=== PATIENT | male | born 1935 | race Caucasian/White ===

== ENCOUNTER 2019-04-16 20:54 | Emergency (ER) | payer MEDICARE, MEDICAID ==
--- NOTE | 2019-04-16 21:13 | EDM.PDOC ---
ED HPI GENERAL MEDICAL PROBLEM - General Chief Complaint: Lower Extremity Injury/Pain Stated Complaint: Right Hip/Leg Pain Time Seen by Provider: 04/16/19 21:07 Source of Information: Reports: Patient, EMS Notes Reviewed, RN, RN Notes Reviewed History Limitations: Reports: No Limitations - History of Present Illness INITIAL COMMENTS - FREE TEXT/NARRATIVE: Patient is brought to the ED at [facility] via EMS after he fell at home. Patient states he fell around 4pm this afternoon but did not call 911 until around 8:30pm. Patient was found laying on the floor by EMS. He complained of right leg pain upon their arrival. Patient was put into a traction splint for comfort. Patient was given IV Dilaudid prior to arrival. Upon arrival to ER, patient states he was is feeling comfortable. He complains of minor pain to the upper right leg. Denies any numbness, tingling, or paresthesia to the RLE. Patient has not seen his PCP in 2 years. He was taking Levothyroxine, but did not get his pills refilled. Onset: Today Onset Date: 04/16/19 Onset Time: 16:00 Right upper thigh/hip Pain Score (Numeric/FACES): 3 - Related Data Allergies Allergy/AdvReac Type Severity Reaction Status Date / Time No Known Allergies Allergy Verified 04/16/19 21:31 Home Meds: Home Meds . [No Known Home Meds] 04/16/19 [History] Past Medical History - Past Health History Medical/Surgical History: Denies Medical/Surgical History HEENT History: Reports: Impaired Vision, Other (See Below) Other HEENT History: legally blind Cardiovascular History: Reports: Other (See Below) Other Cardiovascular History: hypotension Endocrine/Metabolic History: Reports: Hypothyroidism - Past Surgical History HEENT Surgical History: Reports: Eye Surgery Review of Systems - Review of Systems Review Of Systems: See Below Constitutional: Denies: Chills, Fever Respiratory: Denies: Shortness of Breath, Cough Cardiovascular: Denies: Chest Pain, Palpitations Musculoskeletal: Reports: Leg Pain Skin: Reports: No Symptoms Neurological: Reports: No Symptoms ED EXAM, GENERAL - Physical Exam Exam: See Below Exam Limited By: No Limitations General Appearance: Alert, No Apparent Distress Head: Atraumatic, Normocephalic Neck: Normal Inspection, Supple, Non-Tender Respiratory/Chest: No Respiratory Distress, Lungs Clear, Normal Breath Sounds Cardiovascular: Normal Peripheral Pulses, Regular Rate, Rhythm Peripheral Pulses: 1+: Posterior Tibial (L), Posterior Tibial (R), Dorsalis Pedis (L), Dorsalis Pedis (R) Back Exam: Normal Inspection Extremities: No Pedal Edema, Leg Pain, Limited Range of Motion, Increased Warmth Neurological: Alert, Oriented Course - Vital Signs Last Recorded V/S: Last Vital Signs Temp 96.4 F 04/16/19 20:55 Pulse 88 04/16/19 20:55 Resp 16 04/16/19 20:55 BP 141/84 H 04/16/19 20:55 Pulse Ox 95 04/16/19 20:55 - Orders/Labs/Meds Orders: Active Orders 24 hr Category Date Time Status Hip Min 1V Rt [CR] Stat Exams 04/16/19 21:07 Taken COMPREHENSIVE METABOLIC PN,CMP [CHEM] Stat Lab 04/16/19 21:52 Received CREATINE KINASE,CK [CHEM] Stat Lab 04/16/19 21:52 Received INR,PT,PROTHROMBIN TIME [COAG] Stat Lab 04/16/19 21:52 Received Labs: Laboratory Tests 04/16/19 Range/Units 21:52 WBC 16.0 H (4.0-10.0) x10^3/uL RBC 4.27 L (4.5-6.0) x10^6/uL Hgb 13.5 L D (14.0-18.0) g/dL Hct 40.5 (40.0-52.0) % MCV 94.8 H D (78.0-93.0) fL MCH 31.6 (26.0-32.0) pg MCHC 33.3 (32.0-36.0) g/dL RDW Coeff of Alejandro 13.7 (10.0-15.0) % Plt Count 195 (130-400) x10^3/uL Neut % (Auto) 92.9 H (50.0-80.0) % Lymph % (Auto) 3.3 L (25.0-50.0) % [place] % (Auto) 3.7 (2.0-11.0) % Eos % (Auto) 0.0 (0.0-4.0) % Baso % (Auto) 0.1 L (0.2-1.2) % Departure - Departure Time of Disposition: 22:20 Disposition: DC/Tfer to Acute Hospital 02 Condition: Fair Clinical Impression: Femur fracture, right Qualifiers: Encounter type: initial encounter Femur location: unspecified portion of femur Fracture type: closed Fracture morphology: unspecified fracture morphology Qualified Code(s): S72.91XA - Unspecified fracture of right femur, initial encounter for closed fracture - Discharge Information *PRESCRIPTION DRUG MONITORING PROGRAM REVIEWED*: Not Applicable *COPY OF PRESCRIPTION DRUG MONITORING REPORT IN PATIENT KARY: Not Applicable Forms: Interfacility Transfer EMTALA ED Communication - ED Communication Date/Time Date: 04/16/19 Time Called: 22:20 - Discussed Case With (1) Discussed Case With (1): Admitting Provider (Dr. Ramos, [facility]) - Conversation Summary Admitting Provider Agreed to Patient's Admission: Yes Patient Aware of Amendments fo Care Plan: Yes - Problem List Review Problem List Initiated/Reviewed/Updated: Yes - My Orders Last 24 Hours: My Active Orders 04/16/19 21:07 Hip Min 1V Rt [CR] Stat 04/16/19 21:52 COMPREHENSIVE METABOLIC PN,CMP [CHEM] Stat CREATINE KINASE,CK [CHEM] Stat INR,PT,PROTHROMBIN TIME [COAG] Stat - Assessment/Plan Last 24 Hours: My Active Orders 04/16/19 21:07 Hip Min 1V Rt [CR] Stat 04/16/19 21:52 COMPREHENSIVE METABOLIC PN,CMP [CHEM] Stat CREATINE KINASE,CK [CHEM] Stat INR,PT,PROTHROMBIN TIME [COAG] Stat Assessment:: Displaced, distracted oblique fracture of the proximal right femur. Plan: Case discussed with Dr. Ramos [facility]. Patient will be sent to [place] via BLS. Discussed treatment options with patient and he agrees to surgery at this time. Patient signed out to Dr. Ramos.
[2019-04-16 22:17] LABS: CHLORIDE,CL 102 mmol/L (98-107); SODIUM,NA 140 mmol/L (136-145)
[2019-04-16 22:18] LABS: ANION GAP 15.8 mmol/L (10-20)
[2019-04-16] MEDS ORDERED: Morphine 2 MG/ML Syringe IVPUSH ONE ×2 (22:35→22:57)
[2019-04-16] MEDS ORDERED: Sodium Chloride 0.9% 1,000 ML IV ONE (22:35)
[2019-04-16 23:09] VITALS: BP 131/72; PULSE 69
--- NOTE | 2019-04-17 08:12 | CR ---
[id number] RAD/RAD Hip Right 1V EXAM: RAD Hip Right 1V CLINICAL DATA: TRAUMA COMPARISON: NO PREVIOUS SIMILAR EXAM IS AVAILABLE. FINDINGS: A single view of the proximal right femur was obtained portably. There is an oblique proximal right femoral diaphyseal fracture with medial displacement of the distal fracture fragment. The fracture may be pathologic.. IMPRESSION: DISPLACED PROXIMAL RIGHT FEMORAL FRACTURE. QUESTION OF UNDERLYING PATHOLOGIC ETIOLOGY. Esdras Rick MD 04/17/19 0811 Thank you for allowing us to participate in the care of your patient.
== END 2019-04-16 23:15 | disposition short-term general hospital (02) ==
LOC: VM.ED 20:54
DX: S72.001A Fracture of unspecified part of neck of right femur, initial encounter for closed fracture (principal); W18.39XA Other fall on same level, initial encounter; Y92.009 Unspecified place in unspecified non-institutional (private) residence as the place of occurrence of the external cause
CPT/HCPCS: 36415; 73501; 80053; 82550; 85025; 85610; 96374; 99283; 99285; J2270; J7030

== ENCOUNTER 2019-04-20 10:19 | Inpatient (IN) | payer MEDICARE, MEDICAID ==
[2019-04-20] MEDS ORDERED: oxyCODONE 5 MG Tab PO PRN (16:26)
[2019-04-20] MEDS ORDERED: Bisacodyl 10 MG Supp RECTAL PRN (16:28)
[2019-04-20] MEDS ORDERED: Bisacodyl 5 MG Tab PO PRN (16:28)
[2019-04-20] MEDS ORDERED: Magnesium Hydroxide 400 MG/5 ML Susp 30 ML Cup PO PRN (16:29)
[2019-04-20] MEDS ORDERED: Ondansetron 4 MG Tab.DIS PO PRN (16:29)
[2019-04-20] MEDS ORDERED: Non-Formulary Medication 1 Each (Melatonin/Pyridoxine Hcl (B6) [Melatonin 3 Mg Tablet] 3 M PO PRN (16:29)
[2019-04-20] MEDS ORDERED: Acetaminophen 325 MG Tab PO SCH (16:30)
[2019-04-20] MEDS: Acetaminophen 325 MG Tab PO SCH (18:12)
[2019-04-20] MEDS: Calcium Carbonate 750 MG Tab.Chew PO PRN (19:08)
[2019-04-20] MEDS ORDERED: Non-Formulary Medication 1 Each (Magnesium Oxide [Magnesium Oxide] 500 MG) PO SCH (20:00)
[2019-04-20] MEDS: Potassium Phosphate,Mb-Db/Sodium Phosphate,Mb-Db Packet PO SCH (20:22)
[2019-04-20] MEDS: Celecoxib 100 MG Cap PO SCH (20:22)
[2019-04-20] MEDS: Magnesium Oxide 400 MG Tab PO SCH (20:22)
[2019-04-20] MEDS: Polyethylene Glycol 3350 Powder 17 GM Packet PO SCH (20:23)
--- NOTE | 2019-04-20 20:43 | PCM.HP.2 ---
H&P History of Present Illness - General Date of Service: 04/20/19 Admit Problem/Dx: Admission Diagnosis/Problem Admission Diagnosis/Problem Fracture of femur - History of Present Illness Initial Comments - Free Text/Narative: CC: Recovering from R hip nailing HPI: 83-year-old man who lives in the house in [place] where he was born, has had almost no medical care throughout his life. He is almost completely blind, when he goes out he uses a white cane but has not been going out much lately, a friend delivers things to his house. He was sitting on a swivel chair in his home on 04/17, fell out of the chair onto the floor and suffered a subtrochanteric Fx of his R hip, somehow lay on the floor about 4 hours before he was able to call for help. Ambulance brought him to Hospital, [facility] where he had nailing procedure under spinal anesthesia, which he tolerated well and he has done well since. He did have a drop in Hb, has also been found to have Fe deficiency anemia. Now back to Swing Bed at [facility], will not consider going to assisted afterwards, plans to go home again when he has completed PT and rehab. He does not think he has been taking pain medications except Tylenol but there is oxycodone 5 mg p.r.n. on his Med List. 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 He wishes Code Level 1. Has enough vision that he can manipulate his trips downtown but he carries a white cane. Lived with his brother who in their home in . 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 -Cardiac: No chest pain or heart irregularity, BP has been OK lately, sometimes a bit low when he was having problems with syncope -GI: Has never had colon screening, his response to Fam Hx of colon cancer was to avoid eating meat, he is a lacto ovovegetarian. -Musculoskeletal: A little stiffness in his L arm, otherwise his joints dont bother him, until he got this R hip Fx -Endocrine: Hasnt been taking his levothyroxine for a couple years and his TSH was normal, but he has been restarted on levothyroxine because of his Hx; he takes 5000 units of D3 on his own -Genitourinary: Voiding is mildly slowed now -Skin: No Hx of skin cancer -Heme: Discovered on this hospitalization to have Fe deficiency anemia, Hb went down from about 11.5 down to 8.9 -Neuro: Only rarely gets syncope now -Psych: Never had depression or other mood disorder Physical Exam: -General: Alert and lucid, vital signs OK -Eyes: L pupil reacts OK, dense corneal opacity R -ENT: Tongue normal, teeth in very poor condition especially above -Neck: No thyroid enlargement or masses or bruit -Lungs: Clear, no dyspnea -Cardiac: Heart sounds normal and regular; trace ankle edema, palpable dorsalis pedis pulses bilateral -Abdomen: Soft, nontender, no organomegaly or masses -: HALEIGH not done -Extremities: Dressing over his R hip wound and only mild edema surrounding it, mild redness also; mild thickening of knees, lacks 5 of full extension; mild bunion deformity L -Skin: Hyperkeratosis on his feet and toenails very long and deformed -Neuro: Alert and lucid, facial muscles symmetric; memory OK -Psych: Affect normal Impression: -R subtrochanteric hip fracture from fall, Rx hip nailing and allowed weightbearing as tolerated with walker -Mild Hx of syncope along with mild elevation of TSH, so he is back on Synthroid 25 g daily -Blindness of R eye, nearblindness L -Never any preventative care or colon screening, at age 83 no reason to start now -Needs toenail care Plan: -Swing bed until recovered enough to go home -Code level1 per his request -Continue the Synthroid 25 g daily - Related Data Allergies/Adverse Reactions: Allergies Allergy/AdvReac Type Severity Reaction Status Date / Time No Known Allergies Allergy Verified 04/16/19 21:31 Home Medications: Home Meds Acetaminophen [Tylenol] 650 mg PO Q6H 04/20/19 [History] Bisacodyl 1 tab PO BID PRN 04/20/19 [History] Bisacodyl [Dulcolax] 10 mg RECTAL DAILY PRN 04/20/19 [History] Calcium Carbonate [Calcium] 1 tab PO QID PRN 04/20/19 [History] Celecoxib 200 mg PO BID 04/20/19 [History] Docusate Sodium/Sennosides [Senokot-S] 2 tab PO BID 04/20/19 [History] Enoxaparin [Lovenox] 40 mg INJECT DAILY 04/20/19 [History] Levothyroxine 1 tab PO DAILY 04/20/19 [History] Magnesium Hydroxide [Milk of Magnesia] 30 ml PO BID PRN 04/20/19 [History] Magnesium Oxide 500 mg PO BID 04/20/19 [History] Melatonin/Pyridoxine HCl (B6) [Melatonin 3 mg Tablet] 3 mg PO BEDTIME PRN [History] NaPh,Mb-Db/K Ph,MB-DB [Phos-NaK Powder] 1 packet PO BID 04/20/19 [History] Ondansetron HCl/PF [Ondansetron HCl 4 mg/2 ml Syr] 4 mg IV Q4HR PRN 04/20/19 [ History] Ondansetron [Ondansetron ODT] 4 mg PO Q4HR PRN 04/20/19 [History] Polyethylene Glycol 3350 [MiraLAX] 1 packet PO BID 04/20/19 [History] oxyCODONE 5 - 10 mg PO Q4HR PRN 04/20/19 [History] Past Medical History - Past Health History Medical/Surgical History: Denies Medical/Surgical History HEENT History: Reports: Impaired Vision, Other (See Below) Other HEENT History: legally blind Cardiovascular History: Reports: Other (See Below) Other Cardiovascular History: hypotension Gastrointestinal History: Reports: GERD Genitourinary History: Reports: None Musculoskeletal History: Reports: Fracture Other Musculoskeletal History: right femoral fracture Endocrine/Metabolic History: Reports: Hypothyroidism - Past Surgical History HEENT Surgical History: Reports: Eye Surgery Social & Family History - Tobacco Use Smoking Status *Q: Never Smoker - Caffeine Use Caffeine Use: Reports: Coffee - Recreational Drug Use Recreational Drug Use: No H&P Review of Systems - Review of Systems: Review Of Systems: See Below Exam - Exam Exam: See Below - Vital Signs Vital Signs: Last Vital Signs Temp 37.0 C 04/20/19 18:00 Pulse 68 04/20/19 18:00 Resp BP 133/79 04/20/19 18:00 Pulse Ox 99 04/20/19 18:00 Weight: 61.689 kg Problem List Initiated/Reviewed/Updated: Yes Orders Last 24hrs: Active Orders 24 hr Category Date Time Status Admission Status [Patient Status] [ADT] Routine ADT 04/20/19 12:02 Active Patient Status [ADT] Routine ADT 04/20/19 16:25 Active Oxygen Therapy [RC] .PRN Care 04/20/19 16:25 Active Vital Signs [RC] 06,18 Care 04/20/19 16:25 Active OT Evaluation and Treatment [CONS] Routine Cons 04/20/19 11:05 Active PT Evaluation and Treatment [CONS] Routine Cons 04/20/19 11:05 Active Regular Diet [DIET] Diet 04/20/19 Lunch Active Acetaminophen [Tylenol] Med 04/20/19 18:00 Active 650 mg PO Q6H Bisacodyl [Dulcolax] Med 04/20/19 16:28 Active 10 mg RECTAL DAILY PRN Bisacodyl [Dulcolax] Med 04/20/19 16:28 Active 5 mg PO BID PRN Calcium Carbonate [Tums Extra Strength] Med 04/20/19 16:45 Active 750 mg PO QID PRN Celecoxib [CeleBREX] Med 04/20/19 20:00 Active 200 mg PO BID Docusate Sodium/Sennosides [Senna Plus] Med 04/20/19 20:00 Active 2 tab PO BID Enoxaparin [Lovenox] Med 04/21/19 08:00 Active 40 mg SUBCUT DAILY Levothyroxine Med 04/21/19 07:00 Active 25 mcg PO DAILY@0700 Magnesium Hydroxide [Milk of Magnesia] Med 04/20/19 16:29 Active 30 ml PO BID PRN Magnesium Oxide Med 04/20/19 20:00 Active 400 mg PO BID Melatonin Med 04/20/19 20:00 Active 3 mg PO BEDTIME PRN NaPh,Mb-Db/K Ph,MB-DB [Phos-NaK Powder] Med 04/20/19 20:00 Active 1 each PO BID Ondansetron [Zofran ODT] Med 04/20/19 16:29 Active 4 mg PO Q4HR PRN Polyethylene Glycol 3350 [MiraLAX] Med 04/20/19 20:00 Active 17 gm PO BID oxyCODONE Med 04/20/19 16:26 Active 5 mg PO Q4H PRN Weight bearing status [OM.PC] Routine Oth 04/20/19 11:25 Active Code Status [Resuscitation Status] Routine Resus Stat 04/20/19 11:25 Ordered Medication Orders Acetaminophen (Tylenol) 650 mg PO Q6H REPLACED BY [facility] Last Admin: 04/20/19 18:12 Dose: 650 mg Bisacodyl (Dulcolax) 5 mg PO BID PRN PRN Reason: Constipation Bisacodyl (Dulcolax) 10 mg RECTAL DAILY PRN PRN Reason: Constipation Calcium Carbonate/Glycine (Tums Extra Strength) 750 mg PO QID PRN PRN Reason: HEARTBURN Last Admin: 04/20/19 19:08 Dose: 750 mg Celecoxib (Celebrex) 200 mg PO BID REPLACED BY [facility] Last Admin: 04/20/19 20:22 Dose: 200 mg Enoxaparin Sodium (Lovenox) 40 mg SUBCUT DAILY REPLACED BY [facility] Stop: 05/04/19 08:00 Levothyroxine Sodium (Levothyroxine) 25 mcg PO DAILY@0700 REPLACED BY [facility] Magnesium Hydroxide (Milk Of Magnesia) 30 ml PO BID PRN PRN Reason: Constipation Magnesium Oxide (Magnesium Oxide) 400 mg PO BID REPLACED BY [facility] Last Admin: 04/20/19 20:22 Dose: 400 mg Melatonin (Melatonin) 3 mg PO BEDTIME PRN PRN Reason: Insomnia Ondansetron HCl (Zofran Odt) 4 mg PO Q4HR PRN PRN Reason: Nausea/Vomiting Oxycodone HCl (Oxycodone) 5 mg PO Q4H PRN PRN Reason: Pain Polyethylene Glycol (Miralax) 17 gm PO BID REPLACED BY [facility] Last Admin: 04/20/19 20:23 Dose: 17 gm Potassium Phos/Sodium Phos (Phos-Nak Powder) 1 each PO BID REPLACED BY [facility] Last Admin: 04/20/19 20:22 Dose: 1 each Senna/Docusate Sodium (Senna Plus) 2 tab PO BID REPLACED BY [facility] Last Admin: 04/20/19 20:32 Dose: Not Given
[2019-04-21] MEDS: Acetaminophen 325 MG Tab PO SCH ×4 (00:09→17:58)
[2019-04-21] MEDS: Levothyroxine 25 MCG Tab PO SCH ×3 (05:48→06:57)
[2019-04-21] MEDS ORDERED: Levothyroxine 25 MCG Tab PO SCH (08:00)
[2019-04-21] MEDS: Polyethylene Glycol 3350 Powder 17 GM Packet PO SCH ×2 (08:45→20:03)
[2019-04-21] MEDS: Magnesium Oxide 400 MG Tab PO SCH ×2 (08:45→20:04)
[2019-04-21] MEDS: Potassium Phosphate,Mb-Db/Sodium Phosphate,Mb-Db Packet PO SCH ×2 (08:45→20:04)
[2019-04-21] MEDS: Celecoxib 100 MG Cap PO SCH ×2 (08:46→20:01)
[2019-04-21] MEDS: Enoxaparin 40 MG/0.4 ML Syringe SUBCUT SCH (08:46)
[2019-04-21] MEDS: Calcium Carbonate 750 MG Tab.Chew PO PRN (20:45)
[2019-04-22] MEDS: Acetaminophen 325 MG Tab PO SCH ×4 (00:44→17:37)
[2019-04-22] MEDS: Levothyroxine 25 MCG Tab PO SCH (06:20)
[2019-04-22] MEDS: Celecoxib 100 MG Cap PO SCH ×2 (08:29→20:08)
[2019-04-22] MEDS: Magnesium Oxide 400 MG Tab PO SCH ×2 (08:30→20:09)
[2019-04-22] MEDS: Potassium Phosphate,Mb-Db/Sodium Phosphate,Mb-Db Packet PO SCH ×2 (08:30→20:09)
[2019-04-22] MEDS: Enoxaparin 40 MG/0.4 ML Syringe SUBCUT SCH (08:30)
[2019-04-22] MEDS: Polyethylene Glycol 3350 Powder 17 GM Packet PO SCH ×2 (08:30→20:10)
[2019-04-23] MEDS: Acetaminophen 325 MG Tab PO SCH ×4 (00:31→18:25)
[2019-04-23] MEDS: Levothyroxine 25 MCG Tab PO SCH (06:12)
[2019-04-23] MEDS: Potassium Phosphate,Mb-Db/Sodium Phosphate,Mb-Db Packet PO SCH ×2 (07:56→21:36)
[2019-04-23] MEDS: Polyethylene Glycol 3350 Powder 17 GM Packet PO SCH ×2 (07:56→21:37)
[2019-04-23] MEDS: Celecoxib 100 MG Cap PO SCH ×2 (07:56→21:36)
[2019-04-23] MEDS: Enoxaparin 40 MG/0.4 ML Syringe SUBCUT SCH (07:56)
[2019-04-23] MEDS: Magnesium Oxide 400 MG Tab PO SCH ×2 (07:56→21:36)
[2019-04-23 11:27] LABS: CHLORIDE,CL 103 mmol/L (98-107); SODIUM,NA 140 mmol/L (136-145)
[2019-04-23 11:29] LABS: ANION GAP 12.1 mmol/L (10-20)
[2019-04-24] MEDS: Acetaminophen 325 MG Tab PO SCH ×5 (00:48→22:59)
[2019-04-24] MEDS: Levothyroxine 25 MCG Tab PO SCH (06:26)
[2019-04-24] MEDS: Potassium Phosphate,Mb-Db/Sodium Phosphate,Mb-Db Packet PO SCH ×2 (09:04→20:12)
[2019-04-24] MEDS: Enoxaparin 40 MG/0.4 ML Syringe SUBCUT SCH (09:04)
[2019-04-24] MEDS: Magnesium Oxide 400 MG Tab PO SCH ×2 (09:04→20:11)
[2019-04-24] MEDS: Celecoxib 100 MG Cap PO SCH ×2 (09:04→20:12)
[2019-04-24] MEDS: Polyethylene Glycol 3350 Powder 17 GM Packet PO SCH ×2 (09:07→20:11)
[2019-04-24] MEDS: Sulfamethoxazole/Trimethoprim 400-80 MG Tab PO SCH ×2 (11:07→20:12)
--- NOTE | 2019-04-24 11:16 | PCM.PN ---
- General Info Date of Service: 04/24/19 Admission Dx/Problem (Free Text): History: Progressing well in PT, 2 wounds over R hip are stapled, very slight amount of serous drainage from one of them. 2 days ago he had some cloudiness in his urine and though he denies any dysuria a urine culture was done which shows both gram-negative and gram-positive bacteria, the gram-negative is E. coli 100 K, sensitive to everything. Exam: -Wounds are clear, stapled -Alert, cheerful Impression: -Positive urine culture, equivocal symptoms -Hip wound doing well -PT going OK Plan: -Bactrim SS BID 5 days -Continue PT -Follow previous schedule for removing elgin and Ortho F/U - Patient Data Vitals - Most Recent: Last Vital Signs Temp 37.0 C 04/24/19 05:28 Pulse 86 04/24/19 05:28 Resp 18 04/24/19 05:28 BP 138/74 04/24/19 05:28 Pulse Ox 97 04/24/19 05:28 Weight - Most Recent: 61.689 kg I&O - Last 24 Hours: Intake & Output 04/23/19 04/24/19 04/24/19 22:59 06:59 14:59 Intake Total 600 240 Balance 600 240 Lab Results Last 24 Hours: Laboratory Results - last 24 hr 04/23/19 04/23/19 Range/Units 11:05 11:05 WBC 7.5 (4.0-10.0) x10^3/uL RBC 2.39 L (4.5-6.0) x10^6/uL Hgb 7.7 L D (14.0-18.0) g/dL Hct 23.4 L (40.0-52.0) % MCV 97.9 H D (78.0-93.0) fL MCH 32.2 H (26.0-32.0) pg MCHC 32.9 (32.0-36.0) g/dL RDW Coeff of Alejandro 14.8 (10.0-15.0) % Plt Count 287 D (130-400) x10^3/uL Sodium 140 (136-145) mmol/L Potassium 4.1 (3.5-5.1) mmol/L Chloride 103 (98-107) mmol/L Carbon Dioxide 29 (21-32) mmol/L Anion Gap 12.1 (10-20) mmol/L BUN 17 (7-18) mg/dL Creatinine 0.7 (0.70-1.30) mg/dL Est Cr Clr Drug Dosing 70.99 mL/min Estimated GFR (MDRD) > 60 Glucose 113 H (74-106) mg/dL Calcium 8.8 (8.5-10.1) mg/dL Steven Results Last 24 Hours: Microbiology 04/22/19 10:02 Urine Culture - Preliminary Urine, Clean Catch Escherichia Coli Gram Positive Isolate Med Orders - Current: Current Medications Acetaminophen (Tylenol) 650 mg PO Q6H [facility] Last Admin: 04/24/19 11:07 Dose: 650 mg Bisacodyl (Dulcolax) 5 mg PO BID PRN PRN Reason: Constipation Bisacodyl (Dulcolax) 10 mg RECTAL DAILY PRN PRN Reason: Constipation Calcium Carbonate/Glycine (Tums Extra Strength) 750 mg PO QID PRN PRN Reason: HEARTBURN Last Admin: 04/21/19 20:45 Dose: 750 mg Celecoxib (Celebrex) 200 mg PO BID [facility] Last Admin: 04/24/19 09:04 Dose: 200 mg Enoxaparin Sodium (Lovenox) 40 mg SUBCUT DAILY [facility] Stop: 05/04/19 08:00 Last Admin: 04/24/19 09:04 Dose: 40 mg Levothyroxine Sodium (Levothyroxine) 25 mcg PO DAILY@0700 [facility] Last Admin: 04/24/19 06:26 Dose: 25 mcg Magnesium Hydroxide (Milk Of Magnesia) 30 ml PO BID PRN PRN Reason: Constipation Magnesium Oxide (Magnesium Oxide) 400 mg PO BID [facility] Last Admin: 04/24/19 09:04 Dose: 400 mg Melatonin (Melatonin) 3 mg PO BEDTIME PRN PRN Reason: Insomnia Ondansetron HCl (Zofran Odt) 4 mg PO Q4HR PRN PRN Reason: Nausea/Vomiting Oxycodone HCl (Oxycodone) 5 mg PO Q4H PRN PRN Reason: Pain Polyethylene Glycol (Miralax) 17 gm PO BID [facility] Last Admin: 04/24/19 09:07 Dose: Not Given Potassium Phos/Sodium Phos (Phos-Nak Powder) 1 each PO BID [facility] Last Admin: 04/24/19 09:04 Dose: 1 each Senna/Docusate Sodium (Senna Plus) 2 tab PO BID [facility] Last Admin: 04/24/19 09:04 Dose: 2 tab Trimethoprim/Sulfamethoxazole (Septra) 1 tab PO BID [facility] Stop: 04/28/19 20:01 Last Admin: 04/24/19 11:07 Dose: 1 tab Discontinued Medications Acetaminophen (Tylenol) 650 mg PO Q6H [facility] Last Admin: 04/20/19 20:57 Dose: Not Given Levothyroxine Sodium (Levothyroxine) 25 mcg PO DAILY [facility] Non-Formulary Medication (Magnesium Oxide [Magnesium Oxide]) 500 mg PO BID [facility] Non-Formulary Medication (Melatonin/Pyridoxine Hcl (B6) [Melatonin 3 Mg Tablet] ) 3 mg PO BEDTIME PRN PRN Reason: Insomnia - Problem List Review Problem List Initiated/Reviewed/Updated: Yes - My Orders Last 24 Hours: My Active Orders 04/24/19 10:54 Dietary Supplements [RC] BIDMEALS 04/24/19 11:00 Sulfamethoxazole/Trimethoprim [Septra] 1 tab PO BID
[2019-04-24] MEDS: Calcium Carbonate 750 MG Tab.Chew PO PRN (22:59)
[2019-04-25] MEDS: Melatonin 3 MG Tab PO PRN ×2 (03:49→19:41)
[2019-04-25] MEDS: Acetaminophen 325 MG Tab PO SCH ×3 (06:21→17:44)
[2019-04-25] MEDS: Calcium Carbonate 750 MG Tab.Chew PO PRN (06:21)
[2019-04-25] MEDS: Levothyroxine 25 MCG Tab PO SCH (06:21)
[2019-04-25] MEDS: Potassium Phosphate,Mb-Db/Sodium Phosphate,Mb-Db Packet PO SCH ×2 (07:51→19:41)
[2019-04-25] MEDS: Enoxaparin 40 MG/0.4 ML Syringe SUBCUT SCH (07:51)
[2019-04-25] MEDS: Sulfamethoxazole/Trimethoprim 400-80 MG Tab PO SCH ×2 (07:51→19:41)
[2019-04-25] MEDS: Celecoxib 100 MG Cap PO SCH ×2 (07:52→19:41)
[2019-04-25] MEDS: Magnesium Oxide 400 MG Tab PO SCH ×2 (07:52→19:41)
[2019-04-25] MEDS: Polyethylene Glycol 3350 Powder 17 GM Packet PO SCH ×2 (07:52→19:41)
[2019-04-26] MEDS: Acetaminophen 325 MG Tab PO SCH ×4 (00:11→17:15)
[2019-04-26] MEDS: Calcium Carbonate 750 MG Tab.Chew PO PRN (00:12)
[2019-04-26] MEDS: Levothyroxine 25 MCG Tab PO SCH (06:10)
[2019-04-26] MEDS: Polyethylene Glycol 3350 Powder 17 GM Packet PO SCH ×2 (08:03→19:42)
[2019-04-26] MEDS: Magnesium Oxide 400 MG Tab PO SCH ×2 (08:04→19:42)
[2019-04-26] MEDS: Celecoxib 100 MG Cap PO SCH ×2 (08:04→19:42)
[2019-04-26] MEDS: Sulfamethoxazole/Trimethoprim 400-80 MG Tab PO SCH ×2 (08:04→19:42)
[2019-04-26] MEDS: Potassium Phosphate,Mb-Db/Sodium Phosphate,Mb-Db Packet PO SCH ×2 (08:05→19:42)
[2019-04-26] MEDS: Enoxaparin 40 MG/0.4 ML Syringe SUBCUT SCH (08:05)
[2019-04-26] MEDS: Melatonin 3 MG Tab PO PRN (19:42)
[2019-04-27] MEDS: Calcium Carbonate 750 MG Tab.Chew PO PRN (01:05)
[2019-04-27] MEDS: Acetaminophen 325 MG Tab PO SCH ×4 (01:05→18:42)
[2019-04-27] MEDS: Levothyroxine 25 MCG Tab PO SCH (06:15)
[2019-04-27] MEDS: Polyethylene Glycol 3350 Powder 17 GM Packet PO SCH (09:05)
[2019-04-27] MEDS: Enoxaparin 40 MG/0.4 ML Syringe SUBCUT SCH (09:05)
[2019-04-27] MEDS: Magnesium Oxide 400 MG Tab PO SCH ×2 (09:06→21:33)
[2019-04-27] MEDS: Celecoxib 100 MG Cap PO SCH ×2 (09:06→21:33)
[2019-04-27] MEDS: Potassium Phosphate,Mb-Db/Sodium Phosphate,Mb-Db Packet PO SCH ×2 (09:06→21:35)
[2019-04-27] MEDS: Sulfamethoxazole/Trimethoprim 400-80 MG Tab PO SCH ×2 (09:06→21:32)
[2019-04-28] MEDS: Acetaminophen 325 MG Tab PO SCH ×4 (01:30→17:51)
[2019-04-28] MEDS: Polyethylene Glycol 3350 Powder 17 GM Packet PO SCH ×3 (01:31→19:51)
[2019-04-28] MEDS: Levothyroxine 25 MCG Tab PO SCH (06:31)
[2019-04-28] MEDS: Sulfamethoxazole/Trimethoprim 400-80 MG Tab PO SCH ×2 (08:35→19:47)
[2019-04-28] MEDS: Magnesium Oxide 400 MG Tab PO SCH ×2 (08:35→19:50)
[2019-04-28] MEDS: Enoxaparin 40 MG/0.4 ML Syringe SUBCUT SCH (08:35)
[2019-04-28] MEDS: Potassium Phosphate,Mb-Db/Sodium Phosphate,Mb-Db Packet PO SCH ×2 (08:35→19:47)
[2019-04-28] MEDS: Celecoxib 100 MG Cap PO SCH ×2 (08:36→19:44)
[2019-04-29] MEDS: Acetaminophen 325 MG Tab PO SCH ×4 (00:36→17:17)
[2019-04-29] MEDS: Calcium Carbonate 750 MG Tab.Chew PO PRN (00:41)
[2019-04-29] MEDS: Levothyroxine 25 MCG Tab PO SCH (06:18)
[2019-04-29] MEDS: Polyethylene Glycol 3350 Powder 17 GM Packet PO SCH ×2 (07:53→20:18)
[2019-04-29] MEDS: Enoxaparin 40 MG/0.4 ML Syringe SUBCUT SCH (07:54)
[2019-04-29] MEDS: Magnesium Oxide 400 MG Tab PO SCH ×2 (07:54→20:16)
[2019-04-29] MEDS: Potassium Phosphate,Mb-Db/Sodium Phosphate,Mb-Db Packet PO SCH ×2 (07:54→20:17)
[2019-04-29] MEDS: Celecoxib 100 MG Cap PO SCH ×2 (09:27→20:16)
[2019-04-30] MEDS: Acetaminophen 325 MG Tab PO SCH ×5 (00:15→23:55)
[2019-04-30] MEDS: Levothyroxine 25 MCG Tab PO SCH (06:09)
[2019-04-30] MEDS: Potassium Phosphate,Mb-Db/Sodium Phosphate,Mb-Db Packet PO SCH ×2 (09:23→19:37)
[2019-04-30] MEDS: Celecoxib 100 MG Cap PO SCH ×2 (09:23→19:37)
[2019-04-30] MEDS: Magnesium Oxide 400 MG Tab PO SCH ×2 (09:23→19:37)
[2019-04-30] MEDS: Enoxaparin 40 MG/0.4 ML Syringe SUBCUT SCH (09:23)
[2019-04-30] MEDS: Polyethylene Glycol 3350 Powder 17 GM Packet PO SCH ×2 (09:24→19:37)
[2019-05-01] MEDS: Levothyroxine 25 MCG Tab PO SCH ×2 (05:40→07:45)
[2019-05-01] MEDS: Acetaminophen 325 MG Tab PO SCH ×4 (05:40→23:35)
[2019-05-01] MEDS: Celecoxib 100 MG Cap PO SCH ×2 (15:34→20:21)
[2019-05-01] MEDS: Magnesium Oxide 400 MG Tab PO SCH ×2 (15:34→20:21)
[2019-05-01] MEDS: Polyethylene Glycol 3350 Powder 17 GM Packet PO SCH ×2 (15:34→20:21)
[2019-05-01] MEDS: Potassium Phosphate,Mb-Db/Sodium Phosphate,Mb-Db Packet PO SCH ×2 (15:34→20:21)
[2019-05-01] MEDS: Enoxaparin 40 MG/0.4 ML Syringe SUBCUT SCH (15:34)
[2019-05-02] MEDS: Levothyroxine 25 MCG Tab PO SCH (06:07)
[2019-05-02] MEDS: Acetaminophen 325 MG Tab PO SCH ×3 (06:07→17:38)
[2019-05-02] MEDS: Enoxaparin 40 MG/0.4 ML Syringe SUBCUT SCH (08:16)
[2019-05-02] MEDS: Potassium Phosphate,Mb-Db/Sodium Phosphate,Mb-Db Packet PO SCH ×2 (08:16→19:59)
[2019-05-02] MEDS: Celecoxib 100 MG Cap PO SCH ×2 (08:17→19:59)
[2019-05-02] MEDS: Polyethylene Glycol 3350 Powder 17 GM Packet PO SCH ×2 (08:17→19:59)
[2019-05-02] MEDS: Magnesium Oxide 400 MG Tab PO SCH ×2 (08:17→19:59)
[2019-05-03] MEDS: Acetaminophen 325 MG Tab PO SCH ×4 (01:20→18:09)
[2019-05-03] MEDS: Levothyroxine 25 MCG Tab PO SCH ×2 (05:04→06:08)
[2019-05-03] MEDS: Enoxaparin 40 MG/0.4 ML Syringe SUBCUT SCH (08:00)
[2019-05-03] MEDS: Polyethylene Glycol 3350 Powder 17 GM Packet PO SCH ×2 (08:00→20:50)
[2019-05-03] MEDS: Magnesium Oxide 400 MG Tab PO SCH ×2 (08:00→20:49)
[2019-05-03] MEDS: Potassium Phosphate,Mb-Db/Sodium Phosphate,Mb-Db Packet PO SCH ×2 (08:00→20:49)
[2019-05-03] MEDS: Celecoxib 100 MG Cap PO SCH ×2 (08:00→20:49)
[2019-05-03 14:14] LABS: ANION GAP 14.1 mmol/L (10-20); CHLORIDE,CL 100 mmol/L (98-107); SODIUM,NA 136 mmol/L (136-145)
[2019-05-03] MEDS: Ciprofloxacin 250 MG Tab PO SCH ×2 (14:15→20:49)
--- NOTE | 2019-05-03 15:14 | PCM.SN ---
- Free Text/Narrative Note: Nursing noted patient still has UTI symptoms. Last clt did grown multiple bugs but also pseudomonas on final 04/27 report. He did get Bactrim SS bid x 5 days. He had lab today that looked ok. Nursing report he is to be d/c tomorrow I believe to [facility]. renal social worker aware to notify the marine electronics technician doctor Dr. Polanco for d/c. Bladder scan requested also I haven't been notified that it was over 400.
[2019-05-04] MEDS: Acetaminophen 325 MG Tab PO SCH ×3 (05:39→11:48)
[2019-05-04 05:46] VITALS: BP 118/64
[2019-05-04] MEDS: Levothyroxine 25 MCG Tab PO SCH (06:19)
--- NOTE | 2019-05-04 08:27 | PCM.DCSUM1 ---
Discharge Summary - Hospital Course Brief History: Mr. Staton is an 83 yo male who was admitted to [facility] swing bed for rehabilitation following a right femur fracture that was treated with IM nailing. - Discharge Data Discharge Date: 05/04/19 Discharge Disposition: Home, W Home Health Agency 06 Condition: Good - Patient Summary/Data Operative Procedure(s) Performed: none Complications: none Consults: Consultations 04/20/19 11:05 OT Evaluation and Treatment [CONS] Routine PT Evaluation and Treatment [CONS] Routine Labs Pending at D/C: none Recommended Follow-up Testing/Procedures: none Planned Operative Procedure(s) after DC: none Hospital Course: Mr. Staton was admitted to swing bed. PT and OT were consulted and he progressed well with therapies. His incisions healed nicely without complication. He only required scheduled tylenol for pain and has not taken any oxycodone for the entire week prior to discharge. His home medications were continued without incident. He has progressed to the point that PT and OT feel he can be dismissed home to continue with home health therapies. The patient has no other questions or concerns today. [id number] completed today for the purpose of home health, which is that he is s/p femur fracture treated with surgery. His home health plan of care will be followed by his PCP, Dr. Bruce. He will need RN for med setup and management as well as assessments and PT and OT for strengthening. He is homebound due to the femur fracture as well as due to his blindness. He needs the assistance of a gait aid as well as another individual to leave the home. - Patient Instructions Diet: Usual Diet as Tolerated - Discharge Plan Prescriptions/Med Rec: Ciprofloxacin [Ciprofloxacin HCl] 250 mg PO BID #8 tablet Home Medications: Home Meds Acetaminophen [Tylenol] 650 mg PO Q6H 04/20/19 [History] Bisacodyl 5 mg PO BID PRN 04/20/19 [History] Bisacodyl [Dulcolax] 10 mg RECTAL DAILY PRN 04/20/19 [History] Calcium Carbonate [Calcium] 500 mg PO QID PRN 04/20/19 [History] Celecoxib 200 mg PO BID 04/20/19 [History] Docusate Sodium/Sennosides [Senokot-S] 2 tab PO BID 04/20/19 [History] Levothyroxine 25 mcg PO DAILY 04/20/19 [History] Magnesium Hydroxide [Milk of Magnesia] 30 ml PO BID PRN 04/20/19 [History] Magnesium Oxide 500 mg PO BID 04/20/19 [History] Melatonin/Pyridoxine HCl (B6) [Melatonin 3 mg Tablet] 3 mg PO BEDTIME PRN [History] NaPh,Mb-Db/K Ph,MB-DB [Phos-NaK Powder] 1 packet PO BID 04/20/19 [History] Ondansetron [Ondansetron ODT] 4 mg PO Q4HR PRN 04/20/19 [History] Polyethylene Glycol 3350 [MiraLAX] 17 gram PO BID 04/20/19 [History] Ciprofloxacin [Ciprofloxacin HCl] 250 mg PO BID #8 tablet 05/04/19 [Rx] - Discharge Summary/Plan Comment DC Time >30 min.: No - General Info Date of Service: 05/04/19 Subjective Update: Patient reports he is feeling well today and he is prepared for dismissal home. He has gained strength and balance back through his time in swing bed but is looking forward to further gains at home. His pain is controlled with tylenol. His incisions have healed well and he denies any pain or swelling. He has a chronic cough that is unchanged. He otherwise denies any symptoms or concerns. - Review of Systems General: Reports: No Symptoms HEENT: Reports: No Symptoms Pulmonary: Reports: No Symptoms Cardiovascular: Reports: No Symptoms Gastrointestinal: Reports: No Symptoms Genitourinary: Reports: No Symptoms Musculoskeletal: Reports: No Symptoms Skin: Reports: No Symptoms Neurological: Reports: No Symptoms - Patient Data Vitals - Most Recent: Last Vital Signs Temp 36.8 C 05/04/19 05:46 Pulse 69 05/04/19 05:46 Resp 16 05/04/19 05:46 BP 118/64 05/04/19 05:46 Pulse Ox 99 05/04/19 05:46 Weight - Most Recent: 57.062 kg Lab Results - Last 24 hrs: Laboratory Results - last 24 hr 05/03/19 05/03/19 05/03/19 Range/Units 11:10 13:54 13:54 WBC 6.9 (4.0-10.0) x10^3/uL RBC 3.00 L (4.5-6.0) x10^6/uL Hgb 10.0 L D (14.0-18.0) g/dL Hct 31.2 L (40.0-52.0) % MCV 104.0 H D (78.0-93.0) fL MCH 33.3 H (26.0-32.0) pg MCHC 32.1 (32.0-36.0) g/dL RDW Coeff of Alejandro 18.9 H (10.0-15.0) % Plt Count 418 H D (130-400) x10^3/uL Neut % (Auto) 70.9 (50.0-80.0) % Lymph % (Auto) 15.9 L (25.0-50.0) % [place] % (Auto) 9.6 (2.0-11.0) % Eos % (Auto) 3.3 (0.0-4.0) % Baso % (Auto) 0.3 (0.2-1.2) % Sodium 136 (136-145) mmol/L Potassium 5.1 (3.5-5.1) mmol/L Chloride 100 (98-107) mmol/L Carbon Dioxide 27 (21-32) mmol/L Anion Gap 14.1 (10-20) mmol/L BUN 26 H (7-18) mg/dL Creatinine 0.7 (0.70-1.30) mg/dL Est Cr Clr Drug Dosing 65.67 mL/min Estimated GFR (MDRD) > 60 Glucose 78 (74-106) mg/dL Calcium 9.2 (8.5-10.1) mg/dL Urine Color Yellow (YELLOW) Urine Appearance Cloudy H (CLEAR) Urine pH 7.5 (5.0-8.0) Ur Specific [place] 1.015 Urine Protein Trace H (NEGATIVE) mg/dL Urine Glucose (UA) Negative (NEGATIVE) mg/dL Urine Ketones Negative (NEGATIVE) mg/dL Urine Occult Blood Moderate H (NEGATIVE) Urine Nitrite Positive H (NEGATIVE) Urine Bilirubin Negative (NEGATIVE) Urine Urobilinogen 0.2 (0.2) EU/dL Ur Leukocyte Esterase Moderate H (NEGATIVE) Urine RBC 5-10 H (NOT SEEN) /HPF Urine WBC 5-10 H (NOT SEEN) /HPF Ur Squamous Epith Cells Few H (NEGATIVE) /HPF Urine Bacteria Moderate H (NEGATIVE) /HPF Urine Mucus Few H (NEGATIVE) /LPF ANGELINE Results - Last 24 hrs: Microbiology 05/03/19 11:10 Urine Culture - Preliminary Urine, Bladder Gram Negative Rods Med Orders - Current: Current Medications Acetaminophen (Tylenol) 650 mg PO Q6H [facility] Last Admin: 05/04/19 06:19 Dose: 650 mg Bisacodyl (Dulcolax) 5 mg PO BID PRN PRN Reason: Constipation Bisacodyl (Dulcolax) 10 mg RECTAL DAILY PRN PRN Reason: Constipation Calcium Carbonate/Glycine (Tums Extra Strength) 750 mg PO QID PRN PRN Reason: HEARTBURN Last Admin: 04/29/19 00:41 Dose: 750 mg Celecoxib (Celebrex) 200 mg PO BID [facility] Last Admin: 05/03/19 20:49 Dose: 200 mg Ciprofloxacin (Ciprofloxacin Hcl) 250 mg PO BID [facility] Stop: 05/07/19 23:00 Last Admin: 05/03/19 20:49 Dose: 250 mg Levothyroxine Sodium (Levothyroxine) 25 mcg PO DAILY@0700 [facility] Last Admin: 05/04/19 06:19 Dose: 25 mcg Magnesium Hydroxide (Milk Of Magnesia) 30 ml PO BID PRN PRN Reason: Constipation Last Admin: 04/28/19 15:11 Dose: 30 ml Magnesium Oxide (Magnesium Oxide) 400 mg PO BID [facility] Last Admin: 05/03/19 20:49 Dose: 400 mg Melatonin (Melatonin) 3 mg PO BEDTIME PRN PRN Reason: Insomnia Last Admin: 04/26/19 19:42 Dose: 3 mg Ondansetron HCl (Zofran Odt) 4 mg PO Q4HR PRN PRN Reason: Nausea/Vomiting Last Admin: 04/25/19 03:50 Dose: 4 mg Oxycodone HCl (Oxycodone) 5 mg PO Q4H PRN PRN Reason: Pain Polyethylene Glycol (Miralax) 17 gm PO BID [facility] Last Admin: 05/03/19 20:50 Dose: 17 gm Potassium Phos/Sodium Phos (Phos-Nak Powder) 1 each PO BID [facility] Last Admin: 05/03/19 20:49 Dose: 1 each Senna/Docusate Sodium (Senna Plus) 2 tab PO BID [facility] Last Admin: 05/03/19 20:50 Dose: 2 tab Discontinued Medications Acetaminophen (Tylenol) 650 mg PO Q6H [facility] Last Admin: 04/20/19 20:57 Dose: Not Given Enoxaparin Sodium (Lovenox) 40 mg SUBCUT DAILY [facility] Stop: 05/04/19 08:00 Last Admin: 05/03/19 08:00 Dose: 40 mg Levothyroxine Sodium (Levothyroxine) 25 mcg PO DAILY [facility] Non-Formulary Medication (Magnesium Oxide [Magnesium Oxide]) 500 mg PO BID [facility] Non-Formulary Medication (Melatonin/Pyridoxine Hcl (B6) [Melatonin 3 Mg Tablet] ) 3 mg PO BEDTIME PRN PRN Reason: Insomnia Trimethoprim/Sulfamethoxazole (Septra) 1 tab PO BID [facility] Stop: 04/28/19 20:01 Last Admin: 04/28/19 19:47 Dose: 1 tab - Exam General: Reports: Alert, Oriented, Cooperative, No Acute Distress HEENT: Reports: Mucous Membr. Moist/[place] Neck: Reports: Supple, Trachea Midline, No Thyromegaly. Denies: Lymphadenopathy Lungs: Reports: Clear to Auscultation, Normal Respiratory Effort Cardiovascular: Reports: Regular Rate, Regular Rhythm, No Murmurs GI/Abdominal Exam: Normal Bowel Sounds, Soft, Non-Tender, No Organomegaly, No Distention, No Mass Extremities: Non-Tender, No Pedal Edema, Normal Capillary Refill Skin: Reports: Warm, Dry, Other (incisions on the right hip are well healed without any surrounding erythema, edema, or tenderness)
[2019-05-04] MEDS: Ciprofloxacin 250 MG Tab PO SCH (08:55)
[2019-05-04] MEDS: Enoxaparin 40 MG/0.4 ML Syringe SUBCUT SCH (08:55)
[2019-05-04] MEDS: Celecoxib 100 MG Cap PO SCH (08:55)
[2019-05-04] MEDS: Magnesium Oxide 400 MG Tab PO SCH (08:55)
[2019-05-04] MEDS: Polyethylene Glycol 3350 Powder 17 GM Packet PO SCH (08:55)
[2019-05-04] MEDS: Potassium Phosphate,Mb-Db/Sodium Phosphate,Mb-Db Packet PO SCH (08:55)
== END 2019-05-04 13:30 | disposition home health service (06) | DRG 560 ==
LOC: VM.MS 12:02
PROVIDERS: ADMIT Family Medicine; ATTEND Family Medicine
DX: S72.21XD Displaced subtrochanteric fracture of right femur, subsequent encounter for closed fracture with routine healing (principal); N39.0 Urinary tract infection, site not specified; W07.XXXD Fall from chair, subsequent encounter; D50.9 Iron deficiency anemia, unspecified; H54.8 Legal blindness, as defined in USA; K21.9 Gastro-esophageal reflux disease without esophagitis; E03.9 Hypothyroidism, unspecified; Z79.01 Long term (current) use of anticoagulants; Z79.899 Other long term (current) drug therapy; Z98.890 Other specified postprocedural states
CPT/HCPCS: 36415; 51798; 80048; 81001; 85025; 85027; 87086; 87088; 87186; 97110-GP; 97116-GP; 97161-GP; 97165-GO; 97530-GP; 97535-GO; A9270-GY; J1650

== ENCOUNTER 2022-11-28 20:12 | Inpatient (IN) | payer MEDICARE, MEDICAID ==
[2022-11-28] MEDS ORDERED: Sodium Chloride 0.9% 10 ML Syringe FLUSH PRN (20:25)
[2022-11-28] MEDS ORDERED: Sodium Chloride 0.9% 1,000 ML IV SCH (20:30)
[2022-11-28 21:29] LABS: PTT,PARTIAL THROMBOPLSTIN TIME 22.5 SEC (23.6-33.6)
[2022-11-28 21:43] LABS: CHLORIDE,CL 102 mmol/L (98-107); SODIUM,NA 139 mmol/L (136-145)
[2022-11-28 21:44] LABS: ANION GAP 16.2 mmol/L (5-15); ESTIMATED GFR 90 mL/min (>=60)
[2022-11-28] MEDS ORDERED: Polyethylene Glycol 3350 Powder 17 GM Packet PO PRN (23:49)
[2022-11-28] MEDS ORDERED: Ondansetron 4 MG Tab.DIS PO PRN (23:49)
[2022-11-29] MEDS: Sodium Chloride 0.9% 1,000 ML IV SCH ×3 (00:07→19:50)
[2022-11-29] MEDS: Levothyroxine 50 MCG Tab PO SCH (06:13)
[2022-11-29 07:20] LABS: ANION GAP 15.4 mmol/L (5-15)
[2022-11-29] MEDS: Enoxaparin 40 MG/0.4 ML Syringe SUBCUT SCH (09:07)
[2022-11-30] MEDS: Levothyroxine 50 MCG Tab PO SCH (06:09)
[2022-11-30] MEDS: Sodium Chloride 0.9% 1,000 ML IV SCH (06:09)
[2022-11-30 07:19] LABS: ANION GAP 12.2 mmol/L (5-15)
[2022-11-30] MEDS: Enoxaparin 40 MG/0.4 ML Syringe SUBCUT SCH (09:28)
[2022-11-30] MEDS: Sulfamethoxazole/Trimethoprim 800-160 MG Tab PO SCH ×2 (09:30→20:28)
[2022-11-30] MEDS ORDERED: Albuterol/Ipratropium 3.0-0.5 MG/3 ML Neb Soln NEB PRN (10:25)
[2022-11-30] MEDS: Acetaminophen 325 MG Tab PO PRN (20:36)
[2022-12-01] MEDS: Levothyroxine 50 MCG Tab PO SCH (06:11)
[2022-12-01 07:41] LABS: ANION GAP 12.6 mmol/L (5-15)
[2022-12-01] MEDS: Enoxaparin 40 MG/0.4 ML Syringe SUBCUT SCH (09:24)
[2022-12-01] MEDS: cefTRIAXone 1 GM Vial IVPUSH SCH (09:29)
[2022-12-01] MEDS: Finasteride 5 MG Tab PO SCH (16:40)
[2022-12-02] MEDS: Levothyroxine 50 MCG Tab PO SCH (06:10)
[2022-12-02 07:13] LABS: ANION GAP 11.5 mmol/L (5-15)
[2022-12-02] MEDS: Finasteride 5 MG Tab PO SCH (09:01)
[2022-12-02] MEDS: cefTRIAXone 1 GM Vial IVPUSH SCH (09:01)
[2022-12-02] MEDS: Acetaminophen 325 MG Tab PO PRN (16:08)
[2022-12-02] MEDS ORDERED: Calcium Carbonate 750 MG Tab.Chew PO PRN (16:21)
[2022-12-03] MEDS: Acetaminophen 325 MG Tab PO PRN (06:09)
[2022-12-03] MEDS: Levothyroxine 50 MCG Tab PO SCH (06:09)
[2022-12-03 06:59] LABS: ANION GAP 10.9 mmol/L (5-15)
[2022-12-03] MEDS ORDERED: guaiFENesin/Dextromethorphan 100-10 MG/5 ML Soln 10 ML Cup PO PRN (08:45)
[2022-12-03] MEDS ORDERED: Aluminum Hydroxide/Magnesium Hydroxide/Simethicone Susp 30 ML Cup PO PRN (08:45)
[2022-12-03] MEDS: Finasteride 5 MG Tab PO SCH (08:57)
[2022-12-03] MEDS ORDERED: Menthol 10%/Methyl Salicylate 15% 85 GM Tube TOP SCH (09:00)
[2022-12-03] MEDS ORDERED: Sulfamethoxazole/Trimethoprim 800-160 MG Tab PO SCH (09:00)
[2022-12-03 10:03] VITALS: BP 129/74; PULSE 67
== END 2022-12-03 11:30 | disposition swing bed (61) | DRG 565 ==
LOC: VM.ED 20:12 → VM.MS 22:42
PROVIDERS: ADMIT Physician Assistant; ATTEND Family Medicine
DX: T79.6XXA Traumatic ischemia of muscle, initial encounter (principal); D62 Acute posthemorrhagic anemia; R64 Cachexia; Z68.1 Body mass index [BMI] 19.9 or less, adult; N30.90 Cystitis, unspecified without hematuria; E03.9 Hypothyroidism, unspecified; H54.3 Unqualified visual loss, both eyes; M81.0 Age-related osteoporosis without current pathological fracture; W07.XXXA Fall from chair, initial encounter; K21.9 Gastro-esophageal reflux disease without esophagitis; G47.00 Insomnia, unspecified; K59.00 Constipation, unspecified; Y92.008 Other place in unspecified non-institutional (private) residence as the place of occurrence of the external cause; Z79.899 Other long term (current) drug therapy
CPT/HCPCS: 36415; 70450; 71045; 80048; 80053; 80307; 81001; 81003; 82274; 82550; 83605; 83735; 84100; 84443; 84484; 85025; 85610; 85730; 86140; 87040; 87086; 87088; 87186; 92526-GN; 92610-GN; 93005; 93010; 96360; 96361; 97110-GP; 97116-GP; 97162-GP; 97165-GO; 97530-GP; 97535-GO; 99284; 99285-25; A9270-GY; J0696; J1650; J3490; J7030

== ENCOUNTER 2022-12-03 10:32 | Inpatient (IN) | payer MEDICARE, MEDICAID ==
[2022-12-03] MEDS ORDERED: guaiFENesin/Dextromethorphan 100-10 MG/5 ML Soln 10 ML Cup PO PRN (12:08)
[2022-12-03] MEDS ORDERED: Aluminum Hydroxide/Magnesium Hydroxide/Simethicone Susp 30 ML Cup PO PRN (12:08)
[2022-12-03] MEDS ORDERED: Acetaminophen 325 MG Tab PO PRN (13:38)
[2022-12-03] MEDS ORDERED: Polyethylene Glycol 3350 Powder 17 GM Packet PO PRN (13:38)
[2022-12-03] MEDS: Melatonin 3 MG Tab PO SCH (20:21)
[2022-12-03] MEDS: Sulfamethoxazole/Trimethoprim 800-160 MG Tab PO SCH (20:21)
[2022-12-03] MEDS: Menthol 10%/Methyl Salicylate 15% 85 GM Tube TOP SCH (20:22)
[2022-12-04] MEDS: Levothyroxine 50 MCG Tab PO SCH (06:28)
[2022-12-04] MEDS: Menthol 10%/Methyl Salicylate 15% 85 GM Tube TOP SCH ×2 (08:46→20:32)
[2022-12-04] MEDS: Sulfamethoxazole/Trimethoprim 800-160 MG Tab PO SCH ×2 (08:46→20:31)
[2022-12-04] MEDS: Finasteride 5 MG Tab PO SCH (08:46)
[2022-12-04] MEDS: Melatonin 3 MG Tab PO SCH (20:31)
[2022-12-05] MEDS: Levothyroxine 50 MCG Tab PO SCH (06:17)
[2022-12-05] MEDS: Sulfamethoxazole/Trimethoprim 800-160 MG Tab PO SCH ×2 (09:17→20:23)
[2022-12-05] MEDS: Finasteride 5 MG Tab PO SCH (09:17)
[2022-12-05] MEDS: Menthol 10%/Methyl Salicylate 15% 85 GM Tube TOP SCH ×2 (09:18→20:23)
[2022-12-05] MEDS: Melatonin 3 MG Tab PO SCH (20:23)
[2022-12-06] MEDS: Levothyroxine 50 MCG Tab PO SCH (06:35)
[2022-12-06] MEDS: Finasteride 5 MG Tab PO SCH (09:24)
[2022-12-06] MEDS: Menthol 10%/Methyl Salicylate 15% 85 GM Tube TOP SCH (09:25)
[2022-12-06 21:19] VITALS: BP 112/60; PULSE 80
== END 2022-12-06 14:45 | disposition home health service (06) | DRG 948 ==
LOC: VM.MS 11:40
PROVIDERS: ADMIT Family Medicine; ATTEND Family Medicine
DX: R53.81 Other malaise (principal); E03.9 Hypothyroidism, unspecified; H54.3 Unqualified visual loss, both eyes; D64.9 Anemia, unspecified; Z79.890 Hormone replacement therapy; Z79.899 Other long term (current) drug therapy
CPT/HCPCS: 97116-GP; 97530-GP; 97535-GO; A9270-GY

== ENCOUNTER 2024-02-03 11:16 | Inpatient (IN) | payer MEDICARE, MEDICAID ==
[2024-02-03 11:52] LABS: BASOPHILS PERCENT AUTO 0.2 % (0.2-1.2); HEMATOCRIT 34.6 % (40.0-52.0); HEMOGLOBIN 11.7 g/dL (14.0-18.0); IMMATURE GRAN ABSOLUTE AUTO 0.02 x10^3/uL (0.00-0.07); LYMPHOCYTES PERCENT AUTO 9.1 % (25.0-50.0); MEAN CORPUSCULAR HEMOGLOBIN 32.1 pg (26.0-32.0); MEAN CORPUSCULAR HGB CONC 33.8 g/dL (32.0-36.0); MEAN CORPUSCULAR VOLUME 94.8 fL (78.0-93.0); MONOCYTES ABSOLUTE AUTO 0.5 x10^3/uL (0.0-0.8); MONOCYTES PERCENT AUTO 5.1 % (2.0-11.0); NEUTROPHILS ABSOLUTE AUTO 8.9 x10^3/uL (1.8-7.7); NEUTROPHILS PERCENT AUTO 85.4 % (50.0-80.0); PLATELET COUNT,PLT 165 x10^3/uL (130-400); RED BLOOD CELL COUNT 3.65 x10^6/uL (4.5-6.0); WHITE BLOOD CELL COUNT,WBC 10.4 x10^3/uL (4.0-10.0)
[2024-02-03 11:59] LABS: PROTHROMBIN TIME 10.5 SEC (8.9-11.5)
[2024-02-03 12:04] LABS: ALANINE AMINOTRANSFERASE,ALT 16 U/L (16-63); ALBUMIN 3.6 g/dL (3.4-5.0); ALKALINE PHOSPHATASE 83 U/L (46-116); ASPARTATE AMNIOTRANSFERASE,AST 24 U/L (15-37); BILIRUBIN TOTAL 0.4 mg/dL (0.2-1.0); BLOOD UREA NITROGEN,BUN 29 mg/dL (7-18); CALCIUM 9.7 mg/dL (8.5-10.1); CARBON DIOXIDE,CO2 24 mmol/L (21-32); CHLORIDE,CL 100 mmol/L (98-107); CREATININE 0.8 mg/dL (0.70-1.30); GLUCOSE RANDOM 128 mg/dL (70-99); POTASSIUM,K 4.5 mmol/L (3.5-5.1); PROTEIN TOTAL,TP 7.6 g/dL (6.4-8.2); SODIUM,NA 137 mmol/L (136-145)
[2024-02-03 12:05] LABS: ANION GAP 17.5 mmol/L (5-15); ESTIMATED GFR 86 mL/min (>=60)
[2024-02-03 12:29] LABS: APPEARANCE,URINE CLOUDY (CLEAR); COLOR,URINE RED (YELLOW)
[2024-02-03 12:34] LABS: BACTERIA,URINE MODERATE /HPF (NOT SEEN); RBC,URINE PACKED /HPF (NOT SEEN); SQUAMOUS EPITHELIAL CELLS,UR RARE /HPF (NOT SEEN)
[2024-02-03] MEDS ORDERED: Acetaminophen 325 MG Tab PO PRN ×2 (13:32→14:54)
[2024-02-03] MEDS ORDERED: Calcium Carbonate 750 MG Tab.Chew PO PRN (14:56)
[2024-02-03] MEDS: cefTRIAXone 1 GM Vial IVPUSH SCH (17:15)
[2024-02-03] MEDS: Calcium Citrate/Vitamin D3 315 MG-250 Unit Tab PO SCH (17:15)
[2024-02-03] MEDS: Sodium Chloride 0.9% 1,000 ML IV SCH (17:33)
[2024-02-03] MEDS: Menthol 10%/Methyl Salicylate 15% 85 GM Tube TOP SCH (20:17)
[2024-02-03] MEDS: Melatonin 3 MG Tab PO SCH (20:17)
[2024-02-04] MEDS: Levothyroxine 50 MCG Tab PO SCH (06:02)
[2024-02-04 08:29] LABS: BASOPHILS PERCENT AUTO 0.3 % (0.2-1.2); EOSINOPHILS ABSOLUTE AUTO 0.1 x10^3/uL (0.0-0.5); HEMATOCRIT 28.2 % (40.0-52.0); HEMOGLOBIN 9.7 g/dL (14.0-18.0); IMMATURE GRAN ABSOLUTE AUTO 0.01 x10^3/uL (0.00-0.07); LYMPHOCYTES ABSOLUTE AUTO 1.5 x10^3/uL (1.0-4.8); LYMPHOCYTES PERCENT AUTO 24.5 % (25.0-50.0); MEAN CORPUSCULAR HEMOGLOBIN 32.2 pg (26.0-32.0); MEAN CORPUSCULAR HGB CONC 34.4 g/dL (32.0-36.0); MEAN CORPUSCULAR VOLUME 93.7 fL (78.0-93.0); MONOCYTES ABSOLUTE AUTO 0.5 x10^3/uL (0.0-0.8); MONOCYTES PERCENT AUTO 8.5 % (2.0-11.0); NEUTROPHILS ABSOLUTE AUTO 3.9 x10^3/uL (1.8-7.7); NEUTROPHILS PERCENT AUTO 65.5 % (50.0-80.0); PLATELET COUNT,PLT 186 x10^3/uL (130-400); RED BLOOD CELL COUNT 3.01 x10^6/uL (4.5-6.0)
[2024-02-04 08:52] LABS: CALCIUM 9.2 mg/dL (8.5-10.1); CREATININE 0.6 mg/dL (0.70-1.30); EST CRCL DRUG DOSING (CG) 59.38 mL/min
[2024-02-04] MEDS: Finasteride 5 MG Tab PO SCH (09:39)
[2024-02-04] MEDS: Docusate Sodium 100 MG Cap PO SCH (15:31)
[2024-02-05] MEDS ORDERED: Sodium Chloride 0.9% 10 ML Syringe FLUSH PRN (07:50)
[2024-02-05 08:51] LABS: BASOPHILS PERCENT AUTO 0.1 % (0.2-1.2); EOSINOPHILS ABSOLUTE AUTO 0.1 x10^3/uL (0.0-0.5); EOSINOPHILS PERCENT AUTO 1.5 % (0.0-4.0); HEMATOCRIT 31.5 % (40.0-52.0); HEMOGLOBIN 10.5 g/dL (14.0-18.0); IMMATURE GRAN ABSOLUTE AUTO 0.01 x10^3/uL (0.00-0.07); LYMPHOCYTES ABSOLUTE AUTO 1.6 x10^3/uL (1.0-4.8); LYMPHOCYTES PERCENT AUTO 20.3 % (25.0-50.0); MEAN CORPUSCULAR HEMOGLOBIN 31.9 pg (26.0-32.0); MEAN CORPUSCULAR HGB CONC 33.3 g/dL (32.0-36.0); MEAN CORPUSCULAR VOLUME 95.7 fL (78.0-93.0); MONOCYTES ABSOLUTE AUTO 0.7 x10^3/uL (0.0-0.8); MONOCYTES PERCENT AUTO 8.5 % (2.0-11.0); NEUTROPHILS ABSOLUTE AUTO 5.5 x10^3/uL (1.8-7.7); NEUTROPHILS PERCENT AUTO 69.5 % (50.0-80.0); PLATELET COUNT,PLT 184 x10^3/uL (130-400); RED BLOOD CELL COUNT 3.29 x10^6/uL (4.5-6.0); WHITE BLOOD CELL COUNT,WBC 7.9 x10^3/uL (4.0-10.0)
[2024-02-05 09:05] LABS: CALCIUM 9.2 mg/dL (8.5-10.1); CREATININE 0.5 mg/dL (0.70-1.30); EST CRCL DRUG DOSING (CG) 71.52 mL/min; POTASSIUM,K 3.9 mmol/L (3.5-5.1)
[2024-02-05 09:06] LABS: ANION GAP 13.9 mmol/L (5-15)
[2024-02-05] MEDS: Polyethylene Glycol 3350 Powder 17 GM Packet PO PRN (09:27)
[2024-02-05] MEDS: Sodium Chloride 0.9% 10 ML Syringe FLUSH PRN (09:29)
[2024-02-06 06:58] LABS: ANION GAP 10.2 mmol/L (5-15); BASOPHILS PERCENT AUTO 0.2 % (0.2-1.2); CALCIUM 9.2 mg/dL (8.5-10.1); CREATININE 0.5 mg/dL (0.70-1.30); EOSINOPHILS ABSOLUTE AUTO 0.2 x10^3/uL (0.0-0.5); EOSINOPHILS PERCENT AUTO 2.3 % (0.0-4.0); EST CRCL DRUG DOSING (CG) 71.19 mL/min; HEMATOCRIT 30.4 % (40.0-52.0); HEMOGLOBIN 10.4 g/dL (14.0-18.0); IMMATURE GRAN ABSOLUTE AUTO 0.01 x10^3/uL (0.00-0.07); LYMPHOCYTES ABSOLUTE AUTO 1.4 x10^3/uL (1.0-4.8); LYMPHOCYTES PERCENT AUTO 15.8 % (25.0-50.0); MEAN CORPUSCULAR HEMOGLOBIN 32.4 pg (26.0-32.0); MEAN CORPUSCULAR HGB CONC 34.2 g/dL (32.0-36.0); MEAN CORPUSCULAR VOLUME 94.7 fL (78.0-93.0); MONOCYTES ABSOLUTE AUTO 0.6 x10^3/uL (0.0-0.8); MONOCYTES PERCENT AUTO 7.1 % (2.0-11.0); NEUTROPHILS ABSOLUTE AUTO 6.4 x10^3/uL (1.8-7.7); NEUTROPHILS PERCENT AUTO 74.5 % (50.0-80.0); PLATELET COUNT,PLT 194 x10^3/uL (130-400); POTASSIUM,K 4.2 mmol/L (3.5-5.1); RED BLOOD CELL COUNT 3.21 x10^6/uL (4.5-6.0); WHITE BLOOD CELL COUNT,WBC 8.7 x10^3/uL (4.0-10.0)
[2024-02-06 11:18] VITALS: BP 132/66; PULSE 89
[2024-02-06] MEDS: Levofloxacin 250 MG Tab PO ONE (12:52)
== END 2024-02-06 13:40 | disposition home health service (06) | DRG 690 ==
LOC: VM.ED 11:16 → VM.MS 13:32
PROVIDERS: ADMIT Family Medicine; ATTEND Family Medicine
DX: N30.01 Acute cystitis with hematuria (principal); M81.0 Age-related osteoporosis without current pathological fracture; E03.9 Hypothyroidism, unspecified; K21.9 Gastro-esophageal reflux disease without esophagitis; K40.90 Unilateral inguinal hernia, without obstruction or gangrene, not specified as recurrent; N40.0 Benign prostatic hyperplasia without lower urinary tract symptoms; G47.00 Insomnia, unspecified; D50.0 Iron deficiency anemia secondary to blood loss (chronic); R13.10 Dysphagia, unspecified; D72.829 Elevated white blood cell count, unspecified; R31.0 Gross hematuria; B96.20 Unspecified Escherichia coli [E. coli] as the cause of diseases classified elsewhere; B96.5 Pseudomonas (aeruginosa) (mallei) (pseudomallei) as the cause of diseases classified elsewhere; B96.89 Other specified bacterial agents as the cause of diseases classified elsewhere; Z79.890 Hormone replacement therapy; Z79.899 Other long term (current) drug therapy
CPT/HCPCS: 36415; 51702; 80048; 80053; 81001; 85025; 85610; 87086; 87088; 87186; 92610-GN; 99284; A9270-GY; C1758; J0696; J3490; J7030

== ENCOUNTER 2024-10-18 09:50 | Inpatient (IN) | payer MEDICARE, MEDICAID ==
[2024-10-18 10:50] LABS: BASOPHILS PERCENT AUTO 0.1 % (0.2-1.2); HEMATOCRIT 35.5 % (40.0-52.0); IMMATURE GRAN ABSOLUTE AUTO 0.03 x10^3/uL (0.00-0.07); LYMPHOCYTES ABSOLUTE AUTO 0.4 x10^3/uL (1.0-4.8); LYMPHOCYTES PERCENT AUTO 3.1 % (25.0-50.0); MEAN CORPUSCULAR HEMOGLOBIN 30.8 pg (26.0-32.0); MEAN CORPUSCULAR HGB CONC 33.8 g/dL (32.0-36.0); MEAN CORPUSCULAR VOLUME 91.3 fL (78.0-93.0); MONOCYTES ABSOLUTE AUTO 0.5 x10^3/uL (0.0-0.8); MONOCYTES PERCENT AUTO 3.5 % (2.0-11.0); NEUTROPHILS ABSOLUTE AUTO 13.2 x10^3/uL (1.8-7.7); NEUTROPHILS PERCENT AUTO 93.1 % (50.0-80.0); PLATELET COUNT,PLT 220 x10^3/uL (130-400); RED BLOOD CELL COUNT 3.89 x10^6/uL (4.5-6.0); WHITE BLOOD CELL COUNT,WBC 14.2 x10^3/uL (4.0-10.0)
[2024-10-18] MEDS ORDERED: Sodium Chloride 0.9% 10 ML Syringe FLUSH PRN (10:50)
[2024-10-18 11:07] LABS: A/G RATIO 0.68; ALANINE AMINOTRANSFERASE,ALT 29 U/L (16-63); ALBUMIN 3.2 g/dL (3.4-5.0); ALKALINE PHOSPHATASE 111 U/L (46-116); ASPARTATE AMNIOTRANSFERASE,AST 94 U/L (15-37); BILIRUBIN TOTAL 1.1 mg/dL (0.2-1.0); BLOOD UREA NITROGEN,BUN 35 mg/dL (7-18); CALCIUM 9.8 mg/dL (8.5-10.1); CARBON DIOXIDE,CO2 24 mmol/L (21-32); CHLORIDE,CL 92 mmol/L (98-107); CREATININE 0.7 mg/dL (0.70-1.30); GLUCOSE RANDOM 88 mg/dL (70-99); POTASSIUM,K 3.8 mmol/L (3.5-5.1); PROTEIN TOTAL,TP 7.9 g/dL (6.4-8.2); SODIUM,NA 132 mmol/L (136-145)
[2024-10-18 11:10] LABS: ANION GAP 19.8 mmol/L (5-15); ESTIMATED GFR 89 mL/min (>=60)
[2024-10-18 11:39] LABS: PROTHROMBIN TIME 11.1 SEC (9.6-12.0)
[2024-10-18 11:47] LABS: LACTIC ACID 2.1 mmol/L (0.4-2.0)
[2024-10-18 12:34] LABS: APPEARANCE,URINE TURBID (CLEAR); BILIRUBIN,URINE SMALL (NEGATIVE); COLOR,URINE BROWN (YELLOW); GLUCOSE,URINE NEGATIVE (NEGATIVE); KETONES,URINE NEGATIVE (NEGATIVE); LEUKOCYTE ESTERASE,URINE MODERATE (NEGATIVE); NITRITE,URINE NEGATIVE (NEGATIVE); OCCULT BLOOD,URINE LARGE (NEGATIVE); PH,URINE >=9.0 (5.0-8.0); PROTEIN,URINE >=300 mg/dL (NEGATIVE)
[2024-10-18 12:43] LABS: AMORPHOUS SEDIMENT,URINE MANY; BACTERIA,URINE MANY /HPF (NOT SEEN); HYALINE CASTS,URINE MODERATE; MUCUS,URINE MANY /LPF (NOT SEEN); RBC,URINE >100 /HPF (NOT SEEN); SQUAMOUS EPITHELIAL CELLS,UR NOT SEEN /HPF (NOT SEEN); WBC,URINE 50-75 /HPF (NOT SEEN)
[2024-10-18] MEDS: Lactated Ringers 1,000 ML IV SCH ×2 (12:48→17:15)
[2024-10-18] MEDS: Iopamidol 612 MG/ML 100 ML Bottle IVPUSH ONE (13:34)
[2024-10-18] MEDS: Ampicillin/Sulbactam Na 3 GM in Sodium Chloride 0.9% 100 ML IV SCH (14:34)
[2024-10-18] MEDS ORDERED: Ondansetron 4 MG Tab.DIS PO PRN (14:44)
[2024-10-18] MEDS ORDERED: Calcium Carbonate 750 MG Tab.Chew PO PRN (15:42)
[2024-10-18] MEDS: Calcium Citrate/Vitamin D3 315 MG-250 Unit Tab PO SCH (18:45)
[2024-10-18] MEDS: Enoxaparin 30 MG/0.3 ML Syringe SUBCUT SCH (21:35)
[2024-10-18] MEDS: Melatonin 3 MG Tab PO SCH (21:35)
[2024-10-19] MEDS: Levothyroxine 50 MCG Tab PO SCH (06:25)
[2024-10-19 06:55] LABS: BASOPHILS PERCENT AUTO 0.1 % (0.2-1.2); EOSINOPHILS PERCENT AUTO 0.1 % (0.0-4.0); HEMATOCRIT 26.1 % (40.0-52.0); HEMOGLOBIN 9.2 g/dL (14.0-18.0); IMMATURE GRAN ABSOLUTE AUTO 0.01 x10^3/uL (0.00-0.07); LYMPHOCYTES ABSOLUTE AUTO 0.9 x10^3/uL (1.0-4.8); LYMPHOCYTES PERCENT AUTO 12.6 % (25.0-50.0); MEAN CORPUSCULAR HEMOGLOBIN 31.9 pg (26.0-32.0); MEAN CORPUSCULAR HGB CONC 35.2 g/dL (32.0-36.0); MEAN CORPUSCULAR VOLUME 90.6 fL (78.0-93.0); MONOCYTES ABSOLUTE AUTO 0.6 x10^3/uL (0.0-0.8); MONOCYTES PERCENT AUTO 7.5 % (2.0-11.0); NEUTROPHILS ABSOLUTE AUTO 5.9 x10^3/uL (1.8-7.7); NEUTROPHILS PERCENT AUTO 79.6 % (50.0-80.0); PLATELET COUNT,PLT 206 x10^3/uL (130-400); RED BLOOD CELL COUNT 2.88 x10^6/uL (4.5-6.0); WHITE BLOOD CELL COUNT,WBC 7.4 x10^3/uL (4.0-10.0)
[2024-10-19 07:30] LABS: A/G RATIO 0.64; ALBUMIN 2.3 g/dL (3.4-5.0); BILIRUBIN TOTAL 0.8 mg/dL (0.2-1.0); CALCIUM 8.8 mg/dL (8.5-10.1); CREATININE 0.6 mg/dL (0.70-1.30); EST CRCL DRUG DOSING (CG) 58.26 mL/min; POTASSIUM,K 3.7 mmol/L (3.5-5.1); PROTEIN TOTAL,TP 5.9 g/dL (6.4-8.2)
[2024-10-19 07:33] LABS: ANION GAP 10.7 mmol/L (5-15)
[2024-10-19] MEDS: Finasteride 5 MG Tab PO SCH (09:29)
[2024-10-20 08:06] LABS: BASOPHILS PERCENT AUTO 0.3 % (0.2-1.2); EOSINOPHILS ABSOLUTE AUTO 0.1 x10^3/uL (0.0-0.5); EOSINOPHILS PERCENT AUTO 1.3 % (0.0-4.0); HEMATOCRIT 25.1 % (40.0-52.0); HEMOGLOBIN 8.5 g/dL (14.0-18.0); IMMATURE GRAN ABSOLUTE AUTO 0.01 x10^3/uL (0.00-0.07); LYMPHOCYTES ABSOLUTE AUTO 0.8 x10^3/uL (1.0-4.8); LYMPHOCYTES PERCENT AUTO 11.5 % (25.0-50.0); MEAN CORPUSCULAR HEMOGLOBIN 31.3 pg (26.0-32.0); MEAN CORPUSCULAR HGB CONC 33.9 g/dL (32.0-36.0); MEAN CORPUSCULAR VOLUME 92.3 fL (78.0-93.0); MONOCYTES ABSOLUTE AUTO 0.6 x10^3/uL (0.0-0.8); MONOCYTES PERCENT AUTO 8.7 % (2.0-11.0); NEUTROPHILS ABSOLUTE AUTO 5.2 x10^3/uL (1.8-7.7); NEUTROPHILS PERCENT AUTO 78.1 % (50.0-80.0); PLATELET COUNT,PLT 170 x10^3/uL (130-400); RED BLOOD CELL COUNT 2.72 x10^6/uL (4.5-6.0); WHITE BLOOD CELL COUNT,WBC 6.7 x10^3/uL (4.0-10.0)
[2024-10-20 08:18] LABS: A/G RATIO 0.57; BILIRUBIN TOTAL 0.4 mg/dL (0.2-1.0); CALCIUM 8.1 mg/dL (8.5-10.1); CREATININE 0.5 mg/dL (0.70-1.30); EST CRCL DRUG DOSING (CG) 73.81 mL/min; POTASSIUM,K 3.5 mmol/L (3.5-5.1); PROTEIN TOTAL,TP 5.5 g/dL (6.4-8.2)
[2024-10-20 08:19] LABS: ANION GAP 7.5 mmol/L (5-15)
[2024-10-20] MEDS: Hypromellose 0.3% Ophth Soln 15 ML Bottle EYEBOTH PRN (13:02)
[2024-10-21 07:57] LABS: BASOPHILS PERCENT AUTO 0.1 % (0.2-1.2); EOSINOPHILS ABSOLUTE AUTO 0.1 x10^3/uL (0.0-0.5); EOSINOPHILS PERCENT AUTO 1.3 % (0.0-4.0); HEMATOCRIT 25.4 % (40.0-52.0); HEMOGLOBIN 8.6 g/dL (14.0-18.0); IMMATURE GRAN ABSOLUTE AUTO 0.01 x10^3/uL (0.00-0.07); LYMPHOCYTES ABSOLUTE AUTO 0.9 x10^3/uL (1.0-4.8); LYMPHOCYTES PERCENT AUTO 13.3 % (25.0-50.0); MEAN CORPUSCULAR HEMOGLOBIN 31.4 pg (26.0-32.0); MEAN CORPUSCULAR HGB CONC 33.9 g/dL (32.0-36.0); MEAN CORPUSCULAR VOLUME 92.7 fL (78.0-93.0); MONOCYTES ABSOLUTE AUTO 0.7 x10^3/uL (0.0-0.8); MONOCYTES PERCENT AUTO 9.6 % (2.0-11.0); NEUTROPHILS ABSOLUTE AUTO 5.1 x10^3/uL (1.8-7.7); NEUTROPHILS PERCENT AUTO 75.6 % (50.0-80.0); PLATELET COUNT,PLT 205 x10^3/uL (130-400); RED BLOOD CELL COUNT 2.74 x10^6/uL (4.5-6.0); WHITE BLOOD CELL COUNT,WBC 6.8 x10^3/uL (4.0-10.0)
[2024-10-21 08:09] LABS: A/G RATIO 0.53; ALBUMIN 1.9 g/dL (3.4-5.0); BILIRUBIN TOTAL 0.4 mg/dL (0.2-1.0); CALCIUM 8.2 mg/dL (8.5-10.1); CREATININE 0.5 mg/dL (0.70-1.30); EST CRCL DRUG DOSING (CG) 70.76 mL/min; POTASSIUM,K 3.9 mmol/L (3.5-5.1); PROTEIN TOTAL,TP 5.5 g/dL (6.4-8.2)
[2024-10-21 08:10] LABS: ANION GAP 9.9 mmol/L (5-15)
[2024-10-21] MEDS ORDERED: Sennosides/Docusate Sodium 50-8.6 MG Tab PO PRN (10:43)
[2024-10-21] MEDS: Magnesium Hydroxide 400 MG/5 ML Susp 30 ML Cup PO PRN (12:07)
[2024-10-21] MEDS: Piperacillin/Tazobactam 4.5 GM in Sodium Chloride 0.9% 100 ML IV ONE (12:21)
[2024-10-21] MEDS: Piperacillin/Tazobactam 4.5 GM in Sodium Chloride 0.9% 100 ML IV SCH (17:22)
[2024-10-21] MEDS: Acetaminophen 325 MG Tab PO PRN (22:42)
[2024-10-23] MEDS: Lactated Ringers 500 ML IV ONE (11:13)
[2024-10-24] MEDS: Ciprofloxacin 500 MG Tab PO SCH (08:20)
[2024-10-24 10:48] VITALS: BP 121/68; PULSE 78
== END 2024-10-24 10:52 | disposition swing bed (61) | DRG 689 ==
LOC: VM.ED 09:50 → VM.MS 13:22
PROVIDERS: ADMIT Family Medicine; ATTEND Family Medicine
DX: N39.0 Urinary tract infection, site not specified (principal); E43 Unspecified severe protein-calorie malnutrition; J15.211 Pneumonia due to Methicillin susceptible Staphylococcus aureus; J69.0 Pneumonitis due to inhalation of food and vomit; E87.1 Hypo-osmolality and hyponatremia; Z16.24 Resistance to multiple antibiotics; Z68.1 Body mass index [BMI] 19.9 or less, adult; K21.9 Gastro-esophageal reflux disease without esophagitis; I95.9 Hypotension, unspecified; K57.90 Diverticulosis of intestine, part unspecified, without perforation or abscess without bleeding; E03.9 Hypothyroidism, unspecified; K59.00 Constipation, unspecified; E86.0 Dehydration; T79.6XXA Traumatic ischemia of muscle, initial encounter; K40.90 Unilateral inguinal hernia, without obstruction or gangrene, not specified as recurrent; H54.3 Unqualified visual loss, both eyes; D50.9 Iron deficiency anemia, unspecified; M81.0 Age-related osteoporosis without current pathological fracture; R62.7 Adult failure to thrive; Z79.899 Other long term (current) drug therapy; Z98.890 Other specified postprocedural states
CPT/HCPCS: 36415; 51702; 71045; 71046; 73620-RT; 74177; 80053; 81001; 82550; 83605; 84443; 85025; 85610; 87040; 87086; 87088; 87186; 92610-GN; 96360; 97110-GP; 97116-GP; 97162-GP; 97165-GO; 97535-GO; 99285-25; A9270-GY; C1758; J0295; J1650; J2543; J3490; J7120; Q9967

== ENCOUNTER 2024-10-24 08:42 | Inpatient (IN) | payer MEDICAID, MEDICARE ==
[2024-10-24] MEDS ORDERED: Sennosides/Docusate Sodium 50-8.6 MG Tab PO PRN ×2 (11:55→11:58)
[2024-10-24] MEDS ORDERED: Sodium Chloride 0.9% 10 ML Syringe FLUSH PRN (11:55)
[2024-10-24] MEDS ORDERED: Acetaminophen 325 MG Tab PO PRN ×2 (11:55→11:58)
[2024-10-24] MEDS ORDERED: Ondansetron 4 MG Tab.DIS PO PRN ×2 (11:55→11:58)
[2024-10-24] MEDS ORDERED: Magnesium Hydroxide 400 MG/5 ML Susp 30 ML Cup PO PRN ×2 (11:55→11:58)
[2024-10-24] MEDS ORDERED: Non-Formulary Medication 1 Each (Dextran 70/Hypromellose [Artificial Tears] 1 EACH Dropere EYEBOTH PRN (11:58)
[2024-10-24] MEDS ORDERED: Calcium Carbonate 750 MG Tab.Chew PO PRN (11:58)
[2024-10-24] MEDS: Calcium Citrate/Vitamin D3 315 MG-250 Unit Tab PO SCH (17:37)
[2024-10-24] MEDS ORDERED: Calcium Citrate/Vitamin D3 315 MG-250 Unit Tab PO SCH (18:00)
[2024-10-24] MEDS ORDERED: Ciprofloxacin 500 MG Tab PO SCH (21:00)
[2024-10-24] MEDS ORDERED: Melatonin 3 MG Tab PO SCH (21:00)
[2024-10-24] MEDS ORDERED: Enoxaparin 30 MG/0.3 ML Syringe SUBCUT SCH (21:00)
[2024-10-24] MEDS: Menthol 10%/Methyl Salicylate 15% 85 GM Tube TOP SCH (22:03)
[2024-10-24] MEDS: Melatonin 3 MG Tab PO SCH (22:04)
[2024-10-24] MEDS: Enoxaparin 30 MG/0.3 ML Syringe SUBCUT SCH (22:04)
[2024-10-24] MEDS: Ciprofloxacin 500 MG Tab PO SCH (22:04)
[2024-10-25] MEDS: Levothyroxine 50 MCG Tab PO SCH (06:26)
[2024-10-25 07:02] LABS: HEMATOCRIT 26.8 % (40.0-52.0); MEAN CORPUSCULAR HEMOGLOBIN 31.1 pg (26.0-32.0); MEAN CORPUSCULAR HGB CONC 33.6 g/dL (32.0-36.0); MEAN CORPUSCULAR VOLUME 92.7 fL (78.0-93.0); RED BLOOD CELL COUNT 2.89 x10^6/uL (4.5-6.0); WHITE BLOOD CELL COUNT,WBC 7.9 x10^3/uL (4.0-10.0)
[2024-10-25] MEDS ORDERED: Finasteride 5 MG Tab PO SCH (09:00)
[2024-10-25] MEDS ORDERED: Levothyroxine 50 MCG Tab PO SCH (09:00)
[2024-10-25] MEDS: Finasteride 5 MG Tab PO SCH (09:36)
[2024-10-26] MEDS: Hypromellose 0.3% Ophth Soln 15 ML Bottle EYEBOTH PRN (08:43)
[2024-10-26] MEDS: Calcium Carbonate 750 MG Tab.Chew PO PRN (21:46)
[2024-10-28 08:23] LABS: HEMATOCRIT 31.8 % (40.0-52.0); HEMOGLOBIN 10.6 g/dL (14.0-18.0); MEAN CORPUSCULAR HEMOGLOBIN 30.6 pg (26.0-32.0); MEAN CORPUSCULAR HGB CONC 33.3 g/dL (32.0-36.0); MEAN CORPUSCULAR VOLUME 91.9 fL (78.0-93.0); RED BLOOD CELL COUNT 3.46 x10^6/uL (4.5-6.0); WHITE BLOOD CELL COUNT,WBC 7.6 x10^3/uL (4.0-10.0)
[2024-10-31 07:11] LABS: HEMATOCRIT 27.6 % (40.0-52.0); HEMOGLOBIN 9.1 g/dL (14.0-18.0); MEAN CORPUSCULAR HEMOGLOBIN 30.4 pg (26.0-32.0); MEAN CORPUSCULAR VOLUME 92.3 fL (78.0-93.0); RED BLOOD CELL COUNT 2.99 x10^6/uL (4.5-6.0); WHITE BLOOD CELL COUNT,WBC 7.7 x10^3/uL (4.0-10.0)
[2024-11-02] MEDS ORDERED: Ondansetron 4 MG Tab.DIS PO PRN (15:17)
[2024-11-02] MEDS ORDERED: Enoxaparin 30 MG/0.3 ML Syringe SUBCUT SCH (21:00)
[2024-11-03] MEDS: Levothyroxine 50 MCG Tab PO SCH (07:09)
[2024-11-03 08:09] LABS: HEMATOCRIT 28.8 % (40.0-52.0); HEMOGLOBIN 9.6 g/dL (14.0-18.0); MEAN CORPUSCULAR HEMOGLOBIN 30.6 pg (26.0-32.0); MEAN CORPUSCULAR HGB CONC 33.3 g/dL (32.0-36.0); MEAN CORPUSCULAR VOLUME 91.7 fL (78.0-93.0); RED BLOOD CELL COUNT 3.14 x10^6/uL (4.5-6.0); WHITE BLOOD CELL COUNT,WBC 6.2 x10^3/uL (4.0-10.0)
[2024-11-03] MEDS: Finasteride 5 MG Tab PO SCH (09:15)
[2024-11-06 07:00] LABS: HEMATOCRIT 30.1 % (40.0-52.0); MEAN CORPUSCULAR HEMOGLOBIN 30.7 pg (26.0-32.0); MEAN CORPUSCULAR HGB CONC 33.2 g/dL (32.0-36.0); MEAN CORPUSCULAR VOLUME 92.3 fL (78.0-93.0); RED BLOOD CELL COUNT 3.26 x10^6/uL (4.5-6.0); WHITE BLOOD CELL COUNT,WBC 8.4 x10^3/uL (4.0-10.0)
[2024-11-06] MEDS: Levothyroxine 50 MCG Tab (OWN SUPPLY) PO SCH (09:00)
[2024-11-06] MEDS: FINASTERIDE 5 MG PO SCH (09:22)
[2024-11-09 07:09] LABS: HEMATOCRIT 29.3 % (40.0-52.0); HEMOGLOBIN 9.6 g/dL (14.0-18.0); MEAN CORPUSCULAR HEMOGLOBIN 30.4 pg (26.0-32.0); MEAN CORPUSCULAR HGB CONC 32.8 g/dL (32.0-36.0); MEAN CORPUSCULAR VOLUME 92.7 fL (78.0-93.0); RED BLOOD CELL COUNT 3.16 x10^6/uL (4.5-6.0); WHITE BLOOD CELL COUNT,WBC 6.4 x10^3/uL (4.0-10.0)
[2024-11-12 07:17] LABS: HEMOGLOBIN 10.5 g/dL (14.0-18.0); MEAN CORPUSCULAR HEMOGLOBIN 30.6 pg (26.0-32.0); MEAN CORPUSCULAR HGB CONC 32.8 g/dL (32.0-36.0); MEAN CORPUSCULAR VOLUME 93.3 fL (78.0-93.0); RED BLOOD CELL COUNT 3.43 x10^6/uL (4.5-6.0); WHITE BLOOD CELL COUNT,WBC 6.1 x10^3/uL (4.0-10.0)
[2024-11-16] MEDS: Loperamide 2 MG Cap PO PRN (13:04)
[2024-11-23 11:42] LABS: APPEARANCE,URINE TURBID (CLEAR); BILIRUBIN,URINE NEGATIVE (NEGATIVE); COLOR,URINE YELLOW (YELLOW); GLUCOSE,URINE NEGATIVE (NEGATIVE); KETONES,URINE NEGATIVE (NEGATIVE); LEUKOCYTE ESTERASE,URINE LARGE (NEGATIVE); NITRITE,URINE POSITIVE (NEGATIVE); OCCULT BLOOD,URINE SMALL (NEGATIVE); PH,URINE 7.5 (5.0-8.0); PROTEIN,URINE 100 mg/dL (NEGATIVE)
[2024-11-23 11:57] LABS: WBC,URINE SEMI-PACKED /HPF (NOT SEEN)
[2024-11-23 11:58] LABS: AMORPHOUS SEDIMENT,URINE MODERATE; BACTERIA,URINE MANY /HPF (NOT SEEN); SQUAMOUS EPITHELIAL CELLS,UR NOT SEEN /HPF (NOT SEEN); TRIPLE PHOSPHATE CRYSTALS,UR MODERATE /HPF (NOT SEEN)
[2024-11-23] MEDS: Ciprofloxacin 500 MG Tab PO SCH (14:05)
[2024-11-28 09:42] VITALS: BP 104/60; PULSE 86
== END 2024-11-28 10:00 | DRG 947 ==
LOC: VM.MS 11:09
PROVIDERS: ADMIT Nurse Practitioner Family; ATTEND Family Medicine
DX: R53.81 Other malaise (principal); J15.211 Pneumonia due to Methicillin susceptible Staphylococcus aureus; J18.9 Pneumonia, unspecified organism; N39.0 Urinary tract infection, site not specified; E87.1 Hypo-osmolality and hyponatremia; E46 Unspecified protein-calorie malnutrition; Z68.1 Body mass index [BMI] 19.9 or less, adult; E03.9 Hypothyroidism, unspecified; K21.9 Gastro-esophageal reflux disease without esophagitis; D50.9 Iron deficiency anemia, unspecified; F15.90 Other stimulant use, unspecified, uncomplicated; N30.90 Cystitis, unspecified without hematuria; H54.3 Unqualified visual loss, both eyes; R53.1 Weakness; R79.89 Other specified abnormal findings of blood chemistry; Z79.1 Long term (current) use of non-steroidal anti-inflammatories (NSAID); Z87.81 Personal history of (healed) traumatic fracture; Z79.899 Other long term (current) drug therapy; Z87.891 Personal history of nicotine dependence
CPT/HCPCS: 36415; 81001; 82947; 85027; 87086; 87088; 87186; 92610-GN; 97110-GO; 97110-GP; 97116-GP; 97530-GO; 97535-GO; A9270-GY; J1650

== ENCOUNTER 2024-12-18 23:09 | Emergency (ER) | payer MEDICARE, MEDICAID ==
[2024-12-18 23:34] LABS: BASOPHILS PERCENT AUTO 0.1 % (0.2-1.2); EOSINOPHILS PERCENT AUTO 0.1 % (0.0-4.0); HEMATOCRIT 40.3 % (40.0-52.0); HEMOGLOBIN 12.6 g/dL (14.0-18.0); IMMATURE GRAN ABSOLUTE AUTO 0.12 x10^3/uL (0.00-0.07); LYMPHOCYTES ABSOLUTE AUTO 0.6 x10^3/uL (1.0-4.8); LYMPHOCYTES PERCENT AUTO 4.1 % (25.0-50.0); MEAN CORPUSCULAR HEMOGLOBIN 28.8 pg (26.0-32.0); MEAN CORPUSCULAR HGB CONC 31.3 g/dL (32.0-36.0); MEAN CORPUSCULAR VOLUME 92.2 fL (78.0-93.0); MONOCYTES ABSOLUTE AUTO 0.1 x10^3/uL (0.0-0.8); MONOCYTES PERCENT AUTO 0.7 % (2.0-11.0); NEUTROPHILS ABSOLUTE AUTO 14.7 x10^3/uL (1.8-7.7); NEUTROPHILS PERCENT AUTO 94.2 % (50.0-80.0); PLATELET COUNT,PLT 333 x10^3/uL (130-400); RED BLOOD CELL COUNT 4.37 x10^6/uL (4.5-6.0); WHITE BLOOD CELL COUNT,WBC 15.6 x10^3/uL (4.0-10.0)
[2024-12-18 23:37] LABS: HCO3 VENOUS,POC 8 mmol/L (22-29); O2 SATURATION VENOUS,POC 72 %; PCO2 VENOUS,POC 46 mmHg (41-51); PO2 VENOUS,POC 66 mmHg
[2024-12-18 23:41] LABS: PH VENOUS,POC 6.86 pH (7.32-7.43)
[2024-12-18 23:56] VITALS: PULSE 115
== END 2024-12-19 00:23 | disposition expired ==
LOC: VM.ED 23:09 → SUPCPDRO 23:09 → VM.ED 12-19 00:23
DX: U07.1 COVID-19 (principal); J96.01 Acute respiratory failure with hypoxia; E03.9 Hypothyroidism, unspecified; Z79.890 Hormone replacement therapy; Z79.899 Other long term (current) drug therapy
CPT/HCPCS: 36415; 82803; 85025; 99285; 99291